=== PATIENT | female | born 1985 | race Caucasian/White ===

== ENCOUNTER 2016-04-27 15:06 | Emergency (ER) | payer SELFPAY ==
[~2016-04-27] VITALS: Ht 165.1 cm; Wt 68.0 kg
[~2016-04-27 15:06] MED LIST: BSP10T PO; TRAM50TA2 PO
[2016-04-27] MEDS ORDERED: ONDA8TAB9 PO (16:04)
--- NOTE | 2016-04-27 16:04 | ED GI ---
General Stated Complaint: WITHDRAWAL Source of Information: Patient Exam Limitations: No Limitations History of Present Illness Time Seen By Provider: 16:00 Initial Comments To ER with reports of dyspnea and anxiety, abdominal cramping and diarrhea and tearfulness. She is from the addiction treatment [facility] in [place] on day number 3 of withdrawing from OxyContin. 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 She would like to possibly be admitted for Ativan drip. Timing/Duration: 1-2 Days Severity/Quality: Cramping Location: Generalized Abdomen Radiation: No Radiation Activities at Onset: None Allergies and Home Medications Allergies Coded Allergies: No Known Drug Allergies (Unverified , 07/04/14) Review of Systems Constitutional: see HPI EENTM: No Symptoms Reported Respiratory: No Symptoms Reported Cardiovascular: No Symptoms Reported Gastrointestinal: See HPI Abdominal Pain Diarrhea Nausea Genitourinary: No Symptoms Reported Musculoskeletal: no symptoms reported Skin: no symptoms reported Psychiatric/Neurological: No Symptoms Reported Endocrine: No Symptoms Reported Past Lmbcnge-Oepckv-Cammnc Hx Patient Social History Recent Foreign Travel: No Contact w/Someone Who Travel: No Surgeries HX Surgeries: Yes (HIATAL HERNIA REPAIR) Surgeries: Abdominal, Section, Gallbladder, Hysterectomy Respiratory Hx Respiratory Disorders: No Cardiovascular Hx Cardiac Disorders: No Neurological Hx Neurological Disorders: No Reproductive System Hx Reproductive Disorders: No 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 Genitourinary Hx Genitourinary Disorders: No Gastrointestinal Hx Gastrointestinal Disorders: No Musculoskeletal Hx Musculoskeletal Disorders: Yes Musculoskeletal Disorders: Fibromyalgia Endocrine Hx Endocrine Disorders: No HEENT HX ENT Disorders: No Cancer Hx Cancer: No Psychosocial Hx Psychiatric Problems: Yes (IV drug abuse) Behavioral Health Disorders: Anxiety Integumentary HX Skin/Integumentary Disorder: No Blood Transfusions Hx Blood Disorders: No Adverse Reaction to a Blood Tr: No Family Medical History Significant Family History: No Pertinent Family Hx Physical Exam Vital Signs Capillary Refill : General Appearance: WD/WN no apparent distress HEENT: PERRL/EOMI normal ENT inspection Respiratory: no respiratory distress no accessory muscle use Cardiovascular: no edema no murmur Peripheral Pulses: 0 Carotid (R), 0 Carotid (L), 0 Femoral (R), 0 Femoral (L), 0 Dorsalis Pedis (R), 0 Left Dors-Pedis (L), 0 Radial Pulses (R), 0 Radial Pulses (L) Gastrointestinal: normal bowel sounds non tender soft Extremities: normal range of motion non-tender Neurologic/Psychiatric: alert normal mood/affect oriented x 3 other (tearful but a good historian and appreciative of help) Skin: normal color warm/dry Departure Communication Progress Notes I discussed with her and her male visitor at the bedside that the symptoms would be characteristic of opiate withdrawal. I did offer labs to confirm this and rule out other causes but she does not feel this is necessary. I did advise that if we admitted for an Ativan drip then she would need to be detoxed from the Ativan. The symptoms will likely continue for several days and we can help with diarrhea with Imodium restlessness with Benadryl and nausea with Zofran. However this will still be a miserable process. Impression Impression: Primary Impression: Opiate withdrawal Disposition: HOME, SELF-CARE Condition: Stable Departure-Patient Inst. Decision time for Depature: 16:02 Referrals: NO,LOCAL PHYSICIAN (PCP/Family) Primary Care Physician Patient Instructions: Drug Withdrawal (DC) Add. Discharge Instructions: 1. Use the nausea medication as directed in addition to the Benadryl and the Imodium as needed for diarrhea. Expect her symptoms to continue for 3-4 more days. This will be very miserable but rest assured, it is the best decision you could make. It will be very difficult but also very necessary. Scripts Ondansetron (Zofran Odt)8 Mg Tab.rapdis8 Mg PO Q4H PRN NAUSEA/VOMITING #14 TAB Prov:ELIEL HOLDEN APRN 04/27/16 ELIEL HOLDEN APRN Apr 27, 2016 16:04
[2016-04-27 16:05] VITALS: BP 120/91
== END 2016-04-27 16:05 | disposition home or self-care (01) ==
LOC: ER 15:06 → EDUNIT# 15:06 → ER 16:05
DX: F11.23 Opioid dependence with withdrawal (principal); F41.9 Anxiety disorder, unspecified; R19.7 Diarrhea, unspecified
CPT/HCPCS: 99283